=== PATIENT | female | born 1935 | race Caucasian/White ===

== ENCOUNTER → 2018-06-07 13:18 | Outpatient (CLI) | payer MEDICARE, OTHER, SELFPAY ==
--- NOTE | 2018-06-07 | DI.MG.S_ITS ---
BILATERAL DIGITAL SCREENING MAMMOGRAM 3D/2D WITH CAD: 06/07/2018 CLINICAL: Routine screening. Comparison is made to exams dated: 05/14/2017 mammogram, 11/25/2014 mammogram, and 11/06/2013 mammogram - [facility]. The tissue of both breasts is heterogeneously dense. This may lower the sensitivity of mammography. Current study was also evaluated with a Computer Aided Detection (CAD) system. There are benign calcifications in both breasts. No significant masses, calcifications, or other findings are seen in either breast. There has been no significant interval change. IMPRESSION: There is no mammographic evidence of malignancy. A 1 year screening mammogram is recommended. This exam was interpreted at Station ID: [id number]. NOTE: For mammograms, a report in lay terms will be sent to the patient. Approximately 15% of breast malignancies will not be visualized mammographically. In the management of a palpable breast mass, a negative mammogram must not discourage biopsy of a clinically suspicious lesion. Electronically Signed By: Anahi lindsay/[email or web address]:06/07/2018 15:33:29 letter sent: Normal Exam ACR BI-RADS Category 2: Benign Finding(s) 3342F
== END ==
PROVIDERS: PCP Family Medicine; Visit Provider Family Medicine
DX: Z12.31 Encounter for screening mammogram for malignant neoplasm of breast (principal)
CPT/HCPCS: 77063; 77067

== ENCOUNTER → 2019-06-10 11:04 | Outpatient (CLI) | payer MEDICARE, OTHER, SELFPAY ==
--- NOTE | 2019-06-10 | DI.MG.S_ITS ---
BILATERAL DIGITAL SCREENING MAMMOGRAM 3D/2D WITH CAD: 06/10/2019 CLINICAL: Routine screening. Family history of breast cancer. Comparison is made to exams dated: 06/07/2018 mammogram, 05/14/2017 mammogram, and 11/25/2014 mammogram - [facility]. The tissue of both breasts is heterogeneously dense. This may lower the sensitivity of mammography. Current study was also evaluated with a Computer Aided Detection (CAD) system. There are benign calcifications in both breasts. No significant masses, calcifications, or other findings are seen in either breast. There has been no significant interval change. IMPRESSION: There is no mammographic evidence of malignancy. A 1 year screening mammogram is recommended. This exam was interpreted at Station ID: [id number]. NOTE: For mammograms, a report in lay terms will be sent to the patient. Approximately 15% of breast malignancies will not be visualized mammographically. In the management of a palpable breast mass, a negative mammogram must not discourage biopsy of a clinically suspicious lesion. Electronically Signed By: Edu rogers/heidy:06/10/2019 11:46:20 letter sent: Normal Exam ACR BI-RADS Category 2: Benign Finding(s) 3342F
== END ==
PROVIDERS: PCP Family Medicine; Visit Provider Family Medicine
DX: Z12.31 Encounter for screening mammogram for malignant neoplasm of breast (principal); Z80.3 Family history of malignant neoplasm of breast
CPT/HCPCS: 77063; 77067

== ENCOUNTER → 2019-08-25 10:00 | Outpatient (CLI) | payer MEDICARE, OTHER, SELFPAY | PROVIDERS: PCP Family Medicine; Referring Provider Family Medicine; Visit Provider Family Medicine | DX: M81.0 Age-related osteoporosis without current pathological fracture (principal); Z78.0 Asymptomatic menopausal state | CPT/HCPCS: 77080 ==

== ENCOUNTER → 2020-05-25 13:39 | Outpatient (CLI) | payer MEDICARE, OTHER, SELFPAY ==
--- NOTE | 2020-05-25 | DI.RAD.S_ITS ---
PROCEDURE: XR CHEST 2V INDICATIONS: CHEST PAIN TECHNIQUE: 2 views of the chest were acquired. COMPARISON: [facility], , CHEST 2 VIEW, 08/24/2009, 9:59. FINDINGS: Surgical changes and devices: None. Lungs and pleura: Lungs are abnormal with a chronic interstitial prominence and relatively large lung volumes potentially representing evidence of COPD. No pleural effusions or pneumothorax. Mediastinum: Mediastinal contours are normal. Heart size is normal. Bones and chest wall: No suspicious bony abnormalities. Soft tissues appear unremarkable. IMPRESSION: Possible COPD, chronic mild interstitial prominence. No pneumonia seen. No pleural effusion or cardiomegaly present. Dictated by: Magdi Simon M.D. on 05/25/2020 at 14:35 Approved by: Magdi Simon M.D. on 05/25/2020 at 14:36
== END ==
PROVIDERS: PCP Family Medicine; Referring Provider Family Medicine; Visit Provider Family Medicine
DX: R07.9 Chest pain, unspecified (principal)
CPT/HCPCS: 71046

== ENCOUNTER → 2020-06-05 15:23 | Outpatient (CLI) | payer MEDICARE, OTHER, SELFPAY ==
[2020-06-05 16:32] LABS: COVID19 -Nasal RAPID Negative (Negative)
== END ==
PROVIDERS: PCP Family Medicine; Visit Provider Physician Assistant
DX: Z11.59 Encounter for screening for other viral diseases (principal)
CPT/HCPCS: 87635

== ENCOUNTER → 2020-06-07 07:37 | Outpatient (CLI) | payer MEDICARE, OTHER, SELFPAY ==
--- NOTE | 2020-06-07 19:51 | DI.NM.S_ITS ---
DATE OF SERVICE: 06/07/2020 PROCEDURE: Exercise perfusion study. INDICATION: Chest pain. RADIOPHARMACEUTICAL: 26.8 millicurie technetium-99m Myoview IV was injected at stress and 10.0 millicurie technetium-99m Myoview IV was injected at rest. CARDIAC STRESS: The patient underwent exercise perfusion study under the supervision of attending staff. The patient walked on Jayy protocol for 6 minutes and 10 seconds, achieved 96 percent of target heart rate and normal blood pressure response. The patient achieved STAS of -42 percent and 7 METs of workload. No chest pain or anginal symptoms. Baseline EKG revealed sinus rhythm. During exercise, there were significant artifacts seen, however in the immediate recovery, there were no obvious ischemic changes. Occasional PACs and PVCs were reported. RAW DATA: There is an echolucent shadow underneath the inferoateral border of the heart. GATED STUDY: Resting LV ejection fraction 85 and stress LV ejection fraction 83 percent without any obvious wall motion abnormalities. Resting end-diastolic volume 65 mL. TID ratio 1.10, which is within normal limits. Lung/heart ratio 0.38, which is within normal limits. MYOCARDIAL PERFUSION: Stress supine and resting supine images were compared to each other. There are no prone images. The patient refused prone imaging. There appears to be predominantly fixed, small to moderate size, mildly decreased perfusion of inferior wall, as well as distal inferolateral wall and distal anteroseptum without any obvious reversible ischemia. CONCLUSION: 1. No obvious reversible ischemia. 2. Patient has predominantly fixed, small to moderate size, mildly decreased perfusion of inferior wall, as well as this distal inferolateral wall and distal anteroseptum. There is an echolucent shadow seen near the inferolateral border of the heart. 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 Preserved left ventricular function. Inferior wall is moving well. Hence, it goes against the diagnosis of previous transmural myocardial infarction, however, small nontransmural myocardial infarction cannot be ruled out. Good exercise tolerance. STAS -42 percent. There were no prone images, as patient refused prone imaging. Clinical correlation is recommended. Jasmin Marquez - Raul doc#: [id number]/job#: [id number] dd: 06/07/2020 17:41:00 dt: 06/07/2020 19:30:00 DICTATING MD/COPIES TO: Silverio Kemp MD COPIES MNE: MICHAEL;
== END ==
PROVIDERS: PCP Family Medicine; Referring Provider Family Medicine; Visit Provider Family Medicine
DX: R07.9 Chest pain, unspecified (principal)
CPT/HCPCS: 78452; 93017; A9502

== ENCOUNTER → 2021-05-31 11:02 | Outpatient (CLI) | payer MEDICARE, OTHER, SELFPAY ==
--- NOTE | 2021-05-31 | DI.MG.S_ITS ---
BILATERAL DIGITAL SCREENING MAMMOGRAM 3D/2D WITH CAD: 05/31/2021 CLINICAL: Routine screening. Family history of breast cancer. Comparison is made to exams dated: 06/10/2019 mammogram, 06/07/2018 mammogram, and 05/14/2017 mammogram - [facility]. The tissue of both breasts is heterogeneously dense. This may lower the sensitivity of mammography. Current study was also evaluated with a Computer Aided Detection (CAD) system. There are benign calcifications in both breasts. No significant masses, calcifications, or other findings are seen in either breast. There has been no significant interval change. IMPRESSION: BENIGN There is no mammographic evidence of malignancy. A 1 year screening mammogram is recommended. This exam was interpreted at Station ID: [id number]. NOTE: For mammograms, a report in lay terms will be sent to the patient. Approximately 15% of breast malignancies will not be visualized mammographically. In the management of a palpable breast mass, a negative mammogram must not discourage biopsy of a clinically suspicious lesion. Electronically Signed By: Lei hutton/heidy:05/31/2021 11:29:17 letter sent: Normal Exam ACR BI-RADS Category 2: Benign Finding(s) 3342F
== END ==
PROVIDERS: PCP Family Medicine; Referring Provider Family Medicine; Visit Provider Family Medicine
DX: Z12.31 Encounter for screening mammogram for malignant neoplasm of breast (principal); Z80.3 Family history of malignant neoplasm of breast
CPT/HCPCS: 77063; 77067

== ENCOUNTER → 2022-06-16 10:39 | Outpatient (CLI) | payer OTHER, SELFPAY ==
--- NOTE | 2022-06-16 | DI.US.S_ITS ---
PROCEDURE: US CAROTID DOPPLER BI INDICATIONS: Symptoms involving circulatory system TECHNIQUE: Color and pulse Doppler interrogation was performed of both carotid systems, with image documentation and velocity measurements. COMPARISON: [facility], US, CAROTID ARTERY DOPPLER BILAT, 08/26/2009, 9:32. FINDINGS: Stenosis calculations are based on SRU (Society of Radiologists in Ultrasound) criteria. Right side: Brachial blood pressure: 133/67 mm Hg. Common carotid artery peak systolic velocity: 84 cm/sec. Internal carotid artery peak systolic velocity: 87 cm/sec. Internal carotid artery end diastolic velocity: 9 cm/sec. External carotid artery peak systolic velocity: 118 cm/sec. ICA/CCA peak systolic ratio: 1.0 . Johnson scale imaging description: Minimal plaque at the bifurcation Percent internal carotid artery stenosis: Less than 50% . Vertebral artery: Flow direction is antegrade. Left side: Brachial blood pressure: 119/64 mm Hg. Common carotid artery peak systolic velocity: 87 cm/sec. Internal carotid artery peak systolic velocity: 81 cm/sec. Internal carotid artery end diastolic velocity: 23 cm/sec. External carotid artery peak systolic velocity: 95 cm/sec. ICA/CCA peak systolic ratio: 0.9 . Johnson scale imaging description: Minimal plaque at the bifurcation Percent internal carotid artery stenosis: Less than 50% . Vertebral artery: Flow direction is antegrade. IMPRESSION: Less than 50% stenosis of the internal carotid arteries bilaterally. Overall, relatively stable exam. Dictated by: Nannette Chew M.D. on 06/16/2022 at 12:16 Approved by: Nannette Chew M.D. on 06/16/2022 at 12:20
== END ==
PROVIDERS: PCP Family Medicine; Referring Provider Family Medicine; Visit Provider Family Medicine
DX: R09.89 Other specified symptoms and signs involving the circulatory and respiratory systems (principal); I65.23 Occlusion and stenosis of bilateral carotid arteries
CPT/HCPCS: 93880

== ENCOUNTER 2023-07-04 07:51 | Emergency (ER) | payer OTHER, SELFPAY ==
[2023-07-04 08:05] VITALS: BP 183/90; PULSE 109; O2SAT 98
[2023-07-04 08:13] VITALS: BP 183/90; PULSE 99; RESP 20; TEMP 36.7; O2SAT 98; BMI 17.4
--- NOTE | 2023-07-04 08:14 | ED.GENADULT ---
HPI - General Adult General Chief complaint: Urogenital-Female Stated complaint: UTI, fever Time Seen by Provider: 07/04/23 07:58 Source: patient and family Mode of arrival: Ambulatory Limitations: no limitations History of Present Illness HPI narrative: Patient is an 80-year-old female. For the past several days she has had urinary frequency and dysuria. She was seen at her primary doctor's office yesterday where she had a urinalysis. Was not started on any antibiotics. She states that today she is still continuing to have symptoms. Subjective fevers. No vomiting. No abdominal tenderness. She does have a history of vaginitis and has been on and off medications for this. She is here today with family. Related Data Previous Rx's Medication Instructions Recorded nitrofurantoin 100 mg PO BID 5 days #10 caps 07/04/23 monohydrate/macrocrystals 100 mg capsule (Macrobid) Allergies Allergy/AdvReac Type Severity Reaction Status Date / Time codeine [CODEINE] Allergy Intermediate QUITS Unverified 10/24/17 13:05 BREATHING Review of Systems Constitutional Constitutional: Reports system reviewed and no additional complaints, except as documented Gastrointestinal Gastrointestinal: Reports system reviewed and no additional complaints, except as documented Genitourinary Genitourinary: Reports system reviewed and no additional complaints, except as documented Integumentary/Breasts Skin/Breast: Reports system reviewed and no additional complaints, except as documented Patient History Social History Smoking Status: Never smoker Exam Initial Vital Signs Initial Vital Signs: Vital Signs Temperature 98.1 F 07/04/23 08:13 Pulse Rate 99 H 07/04/23 08:13 Respiratory Rate 20 07/04/23 08:13 Blood Pressure 183/90 H 07/04/23 08:13 Pulse Oximetry 98 07/04/23 08:13 Oxygen Delivery Method Room Air 07/04/23 08:13 Const General: cooperative and healthy appearing Resp Effort & Inspection: normal respiratory effort Cardio Rate: tachycardic GI Inspection: normal to inspection and non-distended Palpation: soft and No tender Skin General: no rashes or lesions noted Course Orders Ordered: ED Orders 07/04/23 08:34 Urine Microscopic Routine Vital Signs Vital signs: Vital Signs - 8 hr 07/04/23 08:13 Temperature 98.1 F Pulse Rate 99 H Respiratory Rate 20 Blood Pressure 183/90 H Pulse Oximetry 98 Oxygen Delivery Method Room Air Medical Decision Making Lab Data Labs: Lab Results 07/04/23 07/04/23 Range/Units 08:34 08:40 Urine RBC None seen Cancelled (0-5/HPF) Urine WBC 0-1/hpf Cancelled (0-5/HPF) Ur Squamous Epith Cells None seen Cancelled (0-5/HPF) Ur Transition Epith Cell Cancelled Ur Renal Epithelial Cell Cancelled Calcium Oxalate Crystal Cancelled Uric Acid Crystals Cancelled Triple Phos Crystals Cancelled Other Crystals Cancelled Amorphous Sediment Cancelled Urine Bacteria Occasional (0-1) Cancelled (None) Hyaline Casts Cancelled Granular Casts Cancelled RBC Casts Cancelled WBC Casts Cancelled Other Casts Cancelled Urine Mucus Cancelled Urine Trichomonas Cancelled Urine Yeast Cancelled Urine Sperm Cancelled Ur Culture Indicated? Cult not indicated Cancelled Micro UA Comment Cancelled Urine Dip Bedside Urine Glucose Negative Bedside Urine Bilirubin - Negative Bedside Urine Ketone - Negative Urine Specific Josephine 1.010 Bedside Urine Occult Blood + Bedside Urine pH 6.0 Bedside Urine Protein - Negative Bedside Urine Urobilinogen - Negative Bedside Urine Nitrite - Negative Bedside Urine Leukocytes +/- 15 Esterase Point of care testing: Urine Dip Bedside Urine Glucose Negative Bedside Urine Bilirubin - Negative Bedside Urine Ketone - Negative Urine Specific Josephine 1.010 Bedside Urine Occult Blood + Bedside Urine pH 6.0 Bedside Urine Protein - Negative Bedside Urine Urobilinogen - Negative Bedside Urine Nitrite - Negative Bedside Urine Leukocytes +/- 15 Esterase MDM Narrative Medical decision making narrative: Patient is nontoxic appearing. Is tolerating oral intake. No indication of pyelonephritis. Vital signs unremarkable. Her history is consistent with a UTI. Urinalysis shows leukocyte esterase. She has a occasional bacteria in the urinalysis as well. Culture is pending. Given her history and physical exam will treat her with antibiotics. No indication for admission to the hospital. She was informed with a culture pending at the time of her discharge we will contact her if needed. She was given return precautions. She expressed understanding and agreement. Discharge Plan Departure Patient Disposition: Home Clinical Impression: Urinary tract infection Instructions: DI for Urinary Tract Infection (UTI) Activity Restrictions/Additional Instructions: Recommend that you continue to take all of your medications as directed and take the antibiotic that you were given a prescription for today as directed as well. Keep all of your scheduled medical appointments. Return to the emergency department for new or worsening symptoms. Prescriptions: New nitrofurantoin monohyd/m-cryst [Macrobid] 100 mg capsule 100 mg PO BID 5 Days Qty: 10 0RF Rx Instructions: must administer with a meal/food Referrals: Julien Panchal MD [Primary Care Provider] - Stand Alone Forms: Patient Portal/API
[2023-07-04 09:02] LABS: Bacteria Urine Occasional (0-1); Culture Indicated Urine Cult Not Indicated; RBC Urine None Seen (0-5/HPF); Squamous Epithelial Cell Urine None Seen (0-5/HPF); WBC Urine 0-1/HPF (0-5/HPF)
[2023-07-04 09:35] VITALS: PULSE 81; O2SAT 97
[2023-07-04 09:36] VITALS: BP 152/70; PULSE 83; O2SAT 97
== END 2023-07-04 09:48 | disposition home or self-care (01) ==
PROVIDERS: Emergency Provider Emergency Medicine; PCP Family Medicine
DX: N39.0 Urinary tract infection, site not specified (principal)
CPT/HCPCS: 81003; 81015; 99281; 99282